=== PATIENT | female | born 1990 | race Caucasian/White ===

== ENCOUNTER 2018-11-13 20:50 | Inpatient (IN) | payer OTHER ==
[2018-11-13 21:41] LABS: Urine Benzodiazepine Screen None Detected (None Detect); Urine Opiates Screen None Detected (None Detect)
[2018-11-14] MEDS ORDERED: Promethazine INJ(RESTRICTED)* 25 MG/ML 1 ML VIAL IM PRN (00:07)
[2018-11-14] MEDS ORDERED: Nalbuphine* 10 MG/ML 1 ML VIAL IM PRN (00:07)
[2018-11-14] MEDS ORDERED: Buffered Lidocaine 1% SYRIN* 1 ML/SYRINGE INTRADERM ONE (09:38)
[2018-11-14] MEDS ORDERED: Lactated Ringers 1000 ML Bag* 1,000 ML IV ONE (09:38)
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
[2018-11-14] MEDS ORDERED: Lactated Ringers 1000 ML Bag* 1,000 ML IV SCH ×2 (10:00→23:00)
--- NOTE | 2018-11-14 16:37 | PN ---
Progress Note - Progress Note Date of Service: 11/14/18 SOAP: Subjective: Pt reports increased pressure and an urge to push with some contractions. Objective: FHR: 125bpm, early decels with ctx. P:73, R:20, T:97.8 cervix: AL/90/0 Assessment: 28 y.o. , active labor Plan: 1) Position changes 2) Anticipate vaginal delivery
--- NOTE | 2018-11-14 19:26 | PN ---
Progress Note - Progress Note Date of Service: 11/14/18 SOAP: Subjective: Pt pushing effectively. Objective: FHR:125, T:97.8 cervix Assessment: 28 y.o. , pushing, Plan: 1) Con't pushing 2) Anticipate vaginal delivery 3) position changes PRN
[2018-11-14] MEDS ORDERED: Lidocaine 2% VISCOUS* 15 ML UDC ONE (20:38)
[2018-11-14] MEDS ORDERED: Misoprostol TAB* 200 MCG PR ONE (22:15)
[2018-11-14] MEDS ORDERED: Glycerin ADULT SUPP PR PRN (22:15)
[2018-11-14] MEDS ORDERED: Acetaminophen TAB* 325 MG PO PRN (22:15)
[2018-11-14] MEDS ORDERED: OXYTOCIN* 10 UNITS/ML 1 ML VIAL IM ONE (22:15)
[2018-11-14] MEDS ORDERED: Witch Hazel PAD* JAR TOPICAL PRN (22:15)
[2018-11-14] MEDS ORDERED: Ibuprofen TAB* 600 MG PO PRN (22:15)
[2018-11-14] MEDS ORDERED: Dibucaine 1% 28.35 GM TUBE PR PRN (22:15)
--- NOTE | 2018-11-14 22:21 | PROCNOTE ---
[facility] OB: Delivery Note - Delivery A Date of : 11/14/18 Time of : 21:37 - : [place] Sex: Male Score 1 Minute: 9 Score 5 Minutes: 9 Gestational Age in Weeks and Days at Delivery: 41 Weeks and 1 Days Delivery Method: Spontaneous Vaginal Labor: Spontaneous Amniotic Fluid: Clear Estimated Blood Loss: 400 Anesthesia/Analgesia: None Delivered By: Deisy Hair - Nursery Level of Nursery: Regular/Bedside - Perineum Perineal Injury: Perineal Laceration, 2nd Degree Perineal Repair: By Delivering Practioner - Events Delivery Events of Note: Post- Bleeding - Meds Given, Retained Placenta, Pushed > 3 Hours Delivery Events of Note Comment: short umbilical cord
[2018-11-15] MEDS ORDERED: Ammonia Inhalant* 1 EA AMP ONE ×2 (00:21→00:46)
[2018-11-15 07:02] LABS: Hematocrit 32 % (35-47); Hemoglobin 11.1 g/dL (12.0-16.0); Mean Corpuscular HGB Conc 35 g/dL (31-36); Mean Corpuscular Hemoglobin 33 pg (27-31); Mean Corpuscular Volume 94 fL (80-97); Platelet Count 171 10^3/uL (150-450); Red Blood Count 3.42 10^6 /uL (3.70-4.87); Red Cell Distribution Width 13 % (10-15); White Blood Count 24.3 10^3/uL (3.5-10.8)
[2018-11-15 07:27] LABS: ABS Lymphocytes 1.6 10^3/ul (1.0-4.8); ABS Monocytes 1.3 10^3/ul (0-0.8); ABS Neutrophils 21.3 10^3/ul (1.5-7.7); Lymphocyte % 6.8 %
[2018-11-15] MEDS ORDERED: Simethicone TAB* 80 MG TAB.CHEW PO SCH (08:30)
[2018-11-15] MEDS ORDERED: Ferrous Gluconate TAB* 324 MG TAB PO SCH (09:00)
[2018-11-15] MEDS: Docusate CAP* 100 MG PO SCH ×2 (09:22→20:21)
--- NOTE | 2018-11-15 20:32 | PTEDU ---
Patient Name: KARRIE CALHOUN KARRIE CALHOUN selected video: BBOB: Nurturing Your Gorgeous &Growing Baby by to view on 11/15/2018 at 8:30:06 PM from [id number]
[2018-11-16 08:16] VITALS: BP 92/56
--- NOTE | 2018-11-16 10:20 | PTEDU ---
Patient Name: KARRIE CALHOUN KARRIE CALHOUN selected video: BBOB: Nurturing Your Gorgeous &Growing Baby by to view on 11/16/2018 at 10:17:47 AM from [email or web address]
--- NOTE | 2018-11-16 13:01 | PTEDU ---
Patient Name: KARRIE CALHOUN KARRIE CALHOUN selected video: Follow Me Mum: [place] to Successful to view on at 12:58:47 PM [id number]
[2018-11-16] MEDS: Docusate CAP* 100 MG PO SCH (13:03)
--- NOTE | 2018-11-16 13:23 | PTEDU ---
Patient Name: KARRIE CALHOUN KARRIE CALHOUN selected video: Never Ever Shake a Baby to view on 11/16/2018 at 1:20:[address] [id number]
--- NOTE | 2018-11-16 13:32 | PTEDU ---
Patient Name: KARRIE CALHOUN FUNMILAYO CALHOUNQUELINE selected video: BBOB: Bonding Through Massage to view on 11/16/2018 at 1: 29:43 PM from [email or web address]
[2018-11-16] MEDS ORDERED: Tetan/Diph/Pertus SYR(Tdap)* 0.5 ML SYR(BOOSTRIX) use SYR IM ONE (13:34)
--- NOTE | 2018-11-16 14:54 | PTEDU ---
Patient Name: KARRIE CALHOUN FUNMILAYO CALHOUNQUELINE selected video: BBOB: Bonding Through Massage to view on 11/16/2018 at 2: 52:35 [id number]
[2018-11-16] MEDS ORDERED: Influenza VAC *QUAD* 2019-20* 0.5 ML SYRINGE IM ONE (15:00)
== END 2018-11-16 15:45 | disposition home or self-care (01) | DRG 806 ==
LOC: MCHOBOUT 20:50 → MCHOB 22:21
PROVIDERS: ADMIT Midwife; ATTEND Midwife
PROC: 10E0XZZ Delivery of Products of Conception, External Approach (ICD-10-PCS; principal; 2018-11-14)
PROC: 0KQM0ZZ Repair Perineum Muscle, Open Approach (ICD-10-PCS; 2018-11-14)
PROC: 4A1HXCZ Monitoring of Products of Conception, Cardiac Rate, External Approach (ICD-10-PCS; 2018-11-14)
PROC: 10907ZC Drainage of Amniotic Fluid, Therapeutic from Products of Conception, Via Natural or Artificial Opening (ICD-10-PCS; 2018-11-14)
DX: O48.0 Post-term pregnancy (principal); O72.0 Third-stage hemorrhage; O70.1 Second degree perineal laceration during delivery; O69.3XX0 Labor and delivery complicated by short cord, not applicable or unspecified; Z37.0 Single live birth; Z3A.41 41 weeks gestation of pregnancy; Z67.41 Type O blood, Rh negative
CPT/HCPCS: 36415; 80307; 84112; 85025; 90686; 90715; A9270-GY; J2590